=== PATIENT | female | born 1985 | race Two or more races ===

== ENCOUNTER 2025-04-05 08:30 | Outpatient (CLI) | payer OTHER | END 2025-04-05 08:45 | disposition home or self-care (01) | LOC: SONOGRAMA 08:30 | PROVIDERS: ATTEND Obstetrics & Gynecology Gynecology | DX: N60.12 Diffuse cystic mastopathy of left breast (principal); N63.12 Unspecified lump in the right breast, upper inner quadrant; N84.0 Polyp of corpus uteri; N85.00 Endometrial hyperplasia, unspecified ==